=== PATIENT | female | born 1940 | race Caucasian/White ===

== ENCOUNTER 2024-10-23 06:19 | Day surgery (SDC) | payer MEDICARE ==
[2024-10-16 12:14] LABS: BASOPHILS % (AUTO) 0.9 % (0-1); EOSINOPHILS # (AUTO) 0.1 X10'3 (0-0.9); EOSINOPHILS % (AUTO) 2.4 % (0-6); LYMPHOCYTES # (AUTO) 1.3 X10'3 (1.1-4.8); LYMPHOCYTES % (AUTO) 26.8 % (21-51); MEAN CORPUSCULAR HEMOGLOBIN 35.1 PG (27.0-31.0); MEAN CORPUSCULAR HGB CONC 33.8 g/dL (33.0-36.5); MEAN CORPUSCULAR VOLUME 103.7 FL (78-98); MEAN PLATELET VOLUME 7.9 FL (7.4-10.4); MONOCYTES # (AUTO) 0.5 X10'3 (0-0.9); MONOCYTES % (AUTO) 10.9 % (2-12); NEUTROPHILS # (AUTO) 2.9 X10'3 (1.8-7.7); PRE OP HEMATOCRIT 40.3 % (35.0-45.0); PRE OP HEMOGLOBIN 13.6 g/dL (12.0-16.0); PRE OP PLATELET COUNT 190 X10'3 (140-440); PRE OP WHITE BLOOD COUNT 4.9 10'3 (4.8-10.8); RED BLOOD COUNT 3.89 X10'6 (4.20-5.60); RED CELL DISTRIBUTION WIDTH 13.4 % (11.5-14.5)
[2024-10-16 12:26] LABS: ALBUMIN/GLOBULIN RATIO 1.3 (1.1-1.5); ALKALINE PHOSPHATASE 76 IU/L (46-116); BLOOD UREA NITROGEN 30 MG/DL (7-18); BUN/CREATININE RATIO 28.6 (10.0-20.0); CALCIUM 9.9 MG/DL (8.5-10.1); CHLORIDE 103 MMOL/L (99-107); CREATININE 1.05 MG/DL (0.40-0.90); PRE OP ALT 27 U/L (30-65); PRE OP ANION GAP 6 (8-16); PRE OP AST 21 U/L (10-37); PRE OP BILIRUB, TOTAL 0.6 MG/DL (0.0-1.0); PRE OP GLUCOSE 97 MG/DL (70-104); PRE OP POTASSIUM 4.2 MMOL/L (3.4-5.1); PRE OP SODIUM 137 MMOL/L (135-145); TOTAL CARBON DIOXIDE 27.7 MMOL/L (24-32); eGFR 50 ML/MIN
[2024-10-23] VITALS (12 sets, daily range): BP systolic 129–148; BP diastolic 79–90; PULSE 50–63; RESP 9–16; TEMP 98; O2SAT 97–98
[~2024-10-23] VITALS: Ht 154.9 cm; Wt 50.0 kg
[~2024-10-23 06:19] MED LIST: CALC600T14 PO; LOSA50TA64 PO; PSYL0.4C2 PO; ROSU5TAB51 PO; ceFAZolin 2gm in dextrose, iso 50 ML IV ONE
[2024-10-23] MEDS ORDERED: BUPIVAcaine 2.5mg/ml inj 50ml vial (contains preservative) ONE (06:52)
[2024-10-23] MEDS: famotidine 20mg tablet PO ONE (06:55)
[2024-10-23] MEDS: ringers solution, lacted 1,000 ML IV SCH (06:55)
[2024-10-23] MEDS ORDERED: proCHLORperazine 10 MG/2 ml inj IV PRN (07:30)
[2024-10-23] MEDS ORDERED: ondansetron/PF 4mg/2ml inj IV PRN (07:30)
[2024-10-23] MEDS ORDERED: morphine 2 MG/ML inj. syringe IV PRN (07:30)
[2024-10-23] MEDS ORDERED: ringers solution, lacted 1,000 ML IV SCH (07:30)
[2024-10-23] MEDS ORDERED: meperidine/PF 25mg/ml syringe IV PRN ×3 (07:30)
[2024-10-23] MEDS ORDERED: morphine 4 MG/ML inj SYRINge IV PRN (07:30)
[2024-10-23] MEDS ORDERED: fentaNYL/PF 50MCG/1 ML 2ML syringe ONE (08:19)
[2024-10-23] MEDS ORDERED: midazolam 1 mg/ML 2ml injection ONE (08:20)
[2024-10-23] MEDS: BUPIVAcaine/PF 2.5 mg/ml (0.25%) 30ml vial IJ ONE (08:34)
[2024-10-23] MEDS ORDERED: LIDOcaine 0.5% (5mg/ml) 50ml vial ONE (08:46)
== END 2024-10-23 10:54 | disposition home or self-care (01) ==
LOC: PAS 06:19
PROVIDERS: ATTEND Orthopaedic Surgery Hand Surgery
DX: G56.22 Lesion of ulnar nerve, left upper limb (principal); M19.022 Primary osteoarthritis, left elbow; M19.042 Primary osteoarthritis, left hand; M65.331 Trigger finger, right middle finger; I10 Essential (primary) hypertension; E78.5 Hyperlipidemia, unspecified; G47.30 Sleep apnea, unspecified; Z96.652 Presence of left artificial knee joint; Z96.611 Presence of right artificial shoulder joint; Z96.612 Presence of left artificial shoulder joint; Z98.890 Other specified postprocedural states; Z79.899 Other long term (current) drug therapy
CPT/HCPCS: 36415; 64718; 80053; 82948; 85025; A4215; A4618; A6222; A6402; A6449; A7000; J0690; J2003; J2250; J3010; J3490; J7030; J7120; Z7506; Z7512; Z7610